=== PATIENT | female | born 1950 | race Caucasian/White ===

== ENCOUNTER 2016-12-10 10:17 | Emergency (ER) | payer OTHER, MEDICARE ==
--- NOTE | 2016-12-10 11:05 | ER Document Report ---
ED Neck/Back Problem - General Chief Complaint: Back Pain Stated Complaint: LOWER BACK PAIN Time Seen by Provider: 12/10/16 10:34 Mode of Arrival: Ambulatory Information source: Patient Notes: 6-year-old female presents to ED for complaint of lower back pain that comes around to the front at times for a week. She states that about 6 months ago she fell but she got up and moved and has not had any problems until a week ago. She states that at some time in the past she had pain in the left side of her back that came around to the front but this does not feel like her kidney stones. She states at that time she was also told she had kidney stones on the right. TRAVEL OUTSIDE OF THE [place] IN LAST 30 DAYS: No - HPI Patient complains to provider of: Pain, Lower back Onset: Last week Timing: Waxing and waning Severity: Moderate Pain Level: 3 Recent injury: No Associated symptoms: Lower back pain - sometimes goes around to fron Exacerbated by: Other - walking Relieved by: Other - sitting or lying Similar symptoms previously: No Recently seen / treated by doctor: No - Related Data Allergies/Adverse Reactions: ceftriaxone sodium [From Rocephin] Allergy (Verified 06/09/16 13:52) Past Medical History - General Information source: Patient - Social History Smoking Status: Never Smoker Cigarette use (# per day): No Chew tobacco use (# tins/day): No Smoking Education Provided: No Frequency of alcohol use: None Drug Abuse: None Family History: Arthritis, CVA, Hypertension, Malignancy Patient has suicidal ideation: No Patient has homicidal ideation: No - Past Medical History Cardiac Medical History: Reports: Hx Hypertension Pulmonary Medical History: Reports: Hx Bronchitis EENT Medical History: Reports: None Neurological Medical History: Reports: None Endocrine Medical History: Reports: Hx Diabetes Mellitus Type 2 Renal/ Medical History: Reports: Hx Kidney Stones Malignancy Medical History: Reports: None GI Medical History: Reports: None Musculoskeltal Medical History: Reports Hx Arthritis, Reports Hx Musculoskeletal Deformity, Reports Hx Musculoskeletal Trauma Skin Medical History: Reports None Psychiatric Medical History: Reports: Hx Anxiety Traumatic Medical History: Reports: Hx Fractures - crushed arm Infectious Medical History: Reports: None Past Surgical History: Reports: Hx Hysterectomy, Hx Orthopedic Surgery - replacement disc to neck and back, repair of crushed left arm, Other - ear surgery bilateral - Immunizations Immunizations up to date: No Hx Diphtheria, Pertussis, Tetanus Vaccination: No Review of Systems - Review of Systems Constitutional: No symptoms reported EENT: No symptoms reported Cardiovascular: No symptoms reported Respiratory: No symptoms reported Gastrointestinal: No symptoms reported Genitourinary: No symptoms reported Female Genitourinary: No symptoms reported Musculoskeletal: Back pain, Muscle pain Skin: No symptoms reported Hematologic/Lymphatic: No symptoms reported Neurological/Psychological: No symptoms reported -: Yes All other systems reviewed and negative Physical Exam - Vital signs Vitals: Temp Pulse Resp BP Pulse Ox 97.8 F 89 15 147/87 H 97 12/10/16 10:20 12/10/16 10:20 12/10/16 10:20 12/10/16 10:20 12/10/16 10:20 Interpretation: Normal - General General appearance: Appears well, Alert - HEENT Head: Normocephalic, Atraumatic Eyes: Normal Pupils: PERRL - Respiratory Respiratory status: No respiratory distress Chest status: Nontender Breath sounds: Normal Chest palpation: Normal - Cardiovascular Rhythm: Regular Heart sounds: Normal auscultation Murmur: No - Abdominal Inspection: Normal Distension: No distension Bowel sounds: Normal Tenderness: Nontender Organomegaly: No organomegaly - Back Back: Normal, Nontender, Other - No definite tender to palpation the patient states that the pain is more when she walks but that I am not palpating the area where the pain is as it is inside. - Extremities General upper extremity: Normal inspection, Nontender, Normal color, Normal ROM , Normal temperature General lower extremity: Normal inspection, Nontender, Normal color, Normal ROM , Normal temperature, Normal weight bearing. No: Clarissa's sign - Neurological Neuro grossly intact: Yes Cognition: Normal Orientation: AAOx4 Zeb Coma Scale Eye Opening: Spontaneous Zeb Coma Scale Verbal: Oriented [place] Coma Scale Motor: Obeys Commands Zeb Coma Scale Total: 15 Speech: Normal Motor strength normal: LUE, RUE, LLE, RLE Sensory: Normal - Psychological Associated symptoms: Normal affect, Normal mood - Skin Skin Temperature: Warm Skin Moisture: Dry Skin Color: Normal Course - Re-evaluation Re-evalutation: 12/10/16 12:[address] with patient and written report given the patient to follow-up with her primary doctor. Patient was treated with Toradol in the emergency room and instructed to follow-up with her primary doctor. - Vital Signs Vital signs: Temp Pulse Resp BP Pulse Ox 97.8 F 89 15 147/87 H 97 12/10/16 10:20 12/10/16 10:20 12/10/16 10:20 12/10/16 10:20 12/10/16 10:20 - Laboratory Laboratory results interpreted by me: 12/10/16 11:14 Urine Protein 100 H Urine Bilirubin SMALL H Urine Urobilinogen 2.0 H Ur Leukocyte Esterase TRACE H - Diagnostic Test Radiology reviewed: Image reviewed, Reports reviewed Discharge - Discharge Clinical Impression: Degenerative disc disease at L5-S1 level, non-obstructive kidney stone right Condition: Stable Disposition: HOME, SELF-CARE Additional Instructions: LOW BACK PAIN: Three out of every four people will have an episode of disabling back pain during their lifetime. Most commonly the pain is due to straining of the muscles and ligaments in the low back. Usual treatment includes: (1) Rest on a firm surface. Avoid lying on your stomach. (2) Ice pack the painful area. After a few days, gentle heat may be used intermittently to relax the area, or ice packs can be continued. (3) Medication may be needed -- muscle relaxers and antiinflammatory medicines are commonly used. (4) As the back improves, exercises are prescribed to strengthen the back and abdominal muscles. Your doctor will advise you on the proper care for your back at each stage in your recovery. You may be better in a few days -- or healing may take several weeks. If new symptoms of a "herniated disc" (radiation of pain, numbness, or tingling down the back of the leg or weakness in the leg) occur, you should be re-examined. Further testing may be necessary. Toradol Injection You have been given an injection of ketorolac tromethamine (Toradol). This is an excellent, safe drug for pain control. It also has potent antiinflammatory action. You should have significant pain relief within about one hour. Toradol is not addicting and is non-sedating. It does not interfere with driving or work. Call or return if you develop itching, hives, shortness of breath, or rash. Aspercreme meac-jpj-[id number] would also help your pain use as instructed on the tube.. You were given a copy of your CT please take this to your primary doctor to follow-up. ICE PACKS: Apply ice packs frequently against the painful area. Many different schedules are recommended, such as "20 minutes on, 20 minutes off" or "one hour ice, two hours rest." If you need to work, you may need to go longer between ice treatments. You should plan to have the area ice packed AT LEAST one fourth of the time. The ice should be applied over the wrap, tape, or splint, or over a layer of cloth -- not directly against the skin. Some ice bags have a built-in cloth and can be put directly on the skin. WARM PACKS: After approximately two days, apply gentle heat (such as a heating pad or hot water bottle) for about 20 to 30 minutes about every two hours -- at least four times daily. Warmth and elevation will help you make a more rapid recovery , and will ease the pain considerably. Do not use HOT heat, and never apply heat for longer than 30 minutes. The continuous heat can invisibly damage skin and muscles -- even when no burn is seen on the surface. Damaged muscles can make you MORE sore. FOLLOW-UP CARE: If you have been referred to a physician for follow-up care, call the physician s office for an appointment as you were instructed or within the next two days. If you experience worsening or a significant change in your symptoms, notify the physician immediately or return to the Emergency Department at any time for re-evaluation. Forms: Elevated Blood Pressure
--- NOTE | 2016-12-10 11:29 | RADIOLOGY REPORT (SQ) ---
EXAM DESCRIPTION: CT LTD RENAL STONE PROTOCOL ON COMPLETED DATE/TIME: 12/10/2016 11:04 am REASON FOR STUDY: lower back around to front pain COMPARISON: None. TECHNIQUE: CT scan of the abdomen and pelvis performed without intravenous or oral contrast. Images reviewed with lung, soft tissue, and bone windows. Reconstructed coronal and sagittal MPR images revi ewed. All images stored on PACS. All CT scanners at this facility use dose modulation, iterative reconstruction, and/or weight based d osing when appropriate to reduce radiation dose to as low as reasonably achievable (ALARA). [facility]: Dose Right [facility]: CareDose [facility]: Dose Right [facility]: Teradose 4D [facility]: [employer] RADIATION DOSE: Up-to-date CT equipment and radiation dose reduction techniques were employed. CTDIv ol: 17.5 mGy. DLP: 943 mGy-cm.mGy. LIMITATIONS: None. FINDINGS: LOWER CHEST: No significant findings. No nodules or infiltrates. NON-CONTRASTED LIVER, SPLEEN, ADRENALS: Evaluation limited by lack of IV contrast. No identified sign ificant masses. PANCREAS: No masses. No peripancreatic inflammatory changes. GALLBLADDER: No identified stones by CT criteria. No inflammatory changes to suggest cholecystitis. RIGHT KIDNEY AND URETER: No suspicious masses. Assessment limited by lack of IV contrast. There is a 10 mm upper calyceal calculus. No hydronephrosis or hydroureter. LEFT KIDNEY AND URETER: No suspicious masses. Assessment limited by lack of IV contrast. No signifi cant calcifications. No hydronephrosis or hydroureter. AORTA AND RETROPERITONEUM: No aneurysm. No retroperitoneal masses or adenopathy. BOWEL AND PERITONEAL CAVITY: Considerable stool is present. No acute abnormality is seen. There is no bowel mass. APPENDIX: Normal. PELVIS, BLADDER, AND ABDOMINAL WALL:The urinary bladder is incompletely filled and therefore not well evaluated. The uterus is normal. There is no adnexal mass or fluid collection. There is no free f luid. BONES: There is minimal levoscoliosis in the lumbar spine. Degenerative disc changes and mild spondy losis are present at L3-4. OTHER: No other significant finding. IMPRESSION: 1. There is a 10 mm upper calyceal calculus right kidney. There is no ureteral stone o r obstruction on either side. 2. There are lumbar degenerative disc changes and there is mild lumbar spondylosis and mild scoliosi s. TECHNICAL DOCUMENTATION: JOB ID: [id number] Quality ID # [id number]: Final reports with documentation of one or more dose reduction techniques (e.g., Au tomated exposure control, adjustment of the mA and/or kV according to patient size, use of iterative reconstruction technique) 2010 [employer]- All Rights Reserved
[2016-12-10 11:41] LABS: APPEARANCE,URINE CLOUDY; BILIRUBIN,URINE SMALL (NEGATIVE); GLUCOSE, URINE NEGATIVE (NEGATIVE); KETONES,URINE NEGATIVE (NEGATIVE); LEUKOCYTE ESTERASE,URINE TRACE (NEGATIVE); NITRITE,URINE NEGATIVE (NEGATIVE); PROTEIN,URINE 100 mg/dL (NEGATIVE); URINE SPECIFIC GRAVITY 1.029
[2016-12-10] MEDS ORDERED: KETOROLAC TROMETHAMINE 60 MG/2 ML SDV IM ONE (12:03)
[2016-12-10 12:22] VITALS: BP 149/77
== END 2016-12-10 12:24 | disposition home or self-care (01) ==
LOC: ER 10:17
DX: M51.37 Other intervertebral disc degeneration, lumbosacral region (principal); N20.0 Calculus of kidney; I10 Essential (primary) hypertension; E11.9 Type 2 diabetes mellitus without complications; Z91.81 History of falling; Z88.1 Allergy status to other antibiotic agents; Z98.890 Other specified postprocedural states
CPT/HCPCS: 99284; 96372; 81001; 76380; J1885

== ENCOUNTER → 2017-01-11 | Outpatient (CLI) | payer OTHER, MEDICARE ==
--- NOTE | 2017-01-11 10:55 | RADIOLOGY REPORT (SQ) ---
EXAM DESCRIPTION: MRI CERVICAL SPINE COMBO COMPLETED DATE/TIME: 01/11/2017 9:16 am REASON FOR STUDY: CERVICAL RADICULOPATHY (M54.12) M54.12 RADICULOPATHY, CERVICAL REGION COMPARISON: None. TECHNIQUE: Sagittal and Axial imaging includes T1, T2, STIR and gradient echo sequences. T1 post leodan olinium sequences. CONTRAST TYPE AND DOSE: 20 mL Multihance. RENAL FUNCTION: GFR > 60. LIMITATIONS: None. FINDINGS: ALIGNMENT: Normal. VERTEBRAE: Intact. Anterior fusion of the C5, C 6, and C7 vertebrae. BONE MARROW: Normal. No marrow replacement or reactive changes. DISCS: Normal. No significant abnormal signal or loss of height. HARDWARE: None in the spine. CORD AND BASE OF BRAIN: Normal in size and signal intensity. SOFT TISSUES: No soft tissue masses. C1-C2: No significant spinal stenosis. C2-C3: No significant spinal stenosis or exit foraminal stenosis. C3-C4: Mild posterior disc and osteophyte and right uncovertebral spurring. Borderline mild spinal s tenosis. Moderate to severe right exit foraminal stenosis. C4-C5: Small central disc protrusion with borderline impingement of the cord. No significant spinal stenosis or exit foraminal stenosis. C5-C6: No significant spinal stenosis or exit foraminal stenosis. C6-C7: No significant spinal stenosis or exit foraminal stenosis. C7-T1: No significant spinal stenosis or exit foraminal stenosis. UPPER THORACIC: Incompletely imaged. No significant spinal stenosis or exit foraminal stenosis. ENHANCEMENT: No abnormal enhancement. OTHER: No other significant finding. IMPRESSION: PREVIOUS ANTERIOR FUSION AT C5, C 6, AND C7. DEGENERATIVE DISC DISEASE AT C3-C4 AND C4- C5 DESCRIBED ABOVE. COMMENT: None. TECHNICAL DOCUMENTATION: JOB ID: [id number]- All Rights Reserved
== END ==
LOC: RAD 07:43
PROVIDERS: ATTEND Internal Medicine
DX: M50.123 Cervical disc disorder at C6-C7 level with radiculopathy (principal)
CPT/HCPCS: 82565; 72156; A9577

== ENCOUNTER 2017-11-16 08:31 | Day surgery (SDC) | payer BC, MEDICARE ==
[2017-11-16] MEDS ORDERED: ASPIRIN 325 MG TABLET PO ONE (09:07)
[2017-11-16] MEDS ORDERED: METOCLOPRAMIDE HCL ORAL SOLN 10 MG/10 ML UDCUP PO ONE (09:14)
[2017-11-16] MEDS ORDERED: LIDOCAINE 2% VISCOUS SOLN 20 ML UDCUP PO ONE (09:14)
[2017-11-16] MEDS ORDERED: MAG HYDROX/AL HYDROX/SIMETH SUSP 30 ML UDCUP PO ONE (09:14)
--- NOTE | 2017-11-16 09:16 | ER Document Report ---
ED General - General Chief Complaint: Abdominal Pain Stated Complaint: STOMACH PAIN Time Seen by Provider: 11/16/17 09:05 Mode of Arrival: Ambulatory Information source: Patient Notes: 67 yr old female presents with complaints of epigastric pain radiating to the back and arounds the sides. pt denies any ismilar complaints, denies any fevers or chills, admits to nausea and vomiting . TRAVEL OUTSIDE OF THE [place] IN LAST 30 DAYS: No - HPI Onset: Yesterday Onset/Duration: Persistent Quality of pain: Sharp Severity: Moderate Pain Level: 3 Associated symptoms: Nausea, Vomiting Exacerbated by: Denies Relieved by: Denies Similar symptoms previously: No Recently seen / treated by doctor: No - Related Data Allergies/Adverse Reactions: ceftriaxone sodium [From Rocephin] Allergy (Verified 11/16/17 08:46) Past Medical History - Social History Smoking Status: Never Smoker Cigarette use (# per day): No Chew tobacco use (# tins/day): No Smoking Education Provided: No Family History: Arthritis, CVA, Hypertension, Malignancy - Past Medical History Cardiac Medical History: Reports: Hx Hypertension Pulmonary Medical History: Reports: Hx Bronchitis Endocrine Medical History: Reports: Hx Diabetes Mellitus Type 2 Renal/ Medical History: Reports: Hx Kidney Stones. Denies: Hx Peritoneal Dialysis Musculoskeltal Medical History: Reports Hx Arthritis, Reports Hx Musculoskeletal Deformity, Reports Hx Musculoskeletal Trauma Psychiatric Medical History: Reports: Hx Anxiety Traumatic Medical History: Reports: Hx Fractures - crushed arm Past Surgical History: Reports: Hx Hysterectomy, Hx Orthopedic Surgery - replacement disc to neck and back, repair of crushed left arm, Other - ear surgery bilateral - Immunizations Immunizations up to date: No Hx Diphtheria, Pertussis, Tetanus Vaccination: No Review of Systems - Review of Systems Notes: REVIEW OF SYSTEMS: CONSTITUTIONAL : Denies fever, chills, or sweats. Denies recent illness. EENT: Denies eye, ear, throat, or mouth pain or symptoms. Denies nasal or sinus congestion or discharge. Denies throat, tongue, or mouth swelling or difficulty swallowing. CARDIOVASCULAR: Denies chest pain. Denies palpitations or racing or irregular heart beat. Denies ankle edema. RESPIRATORY: Denies cough, cold, or chest congestion. Denies shortness of breath, difficulty breathing, or wheezing. GASTROINTESTINAL: admits to abd pain, epigastric radiating ot her back GENITOURINARY: Denies difficulty urinating, painful urination, burning, frequency, blood in urine, or discharge. FEMALE GENITOURINARY: Denies vaginal bleeding, heavy or abnormal periods, irregular periods. Denies vaginal discharge or odor. MUSCULOSKELETAL: Denies back or neck pain or stiffness. Denies joint pain or swelling. SKIN: Denies rash, lesions or sores. HEMATOLOGIC : Denies easy bruising or bleeding. LYMPHATIC: Denies swollen, enlarged glands. NEUROLOGICAL: Denies confusion or altered mental status. Denies passing out or loss of consciousness. Denies dizziness or lightheadedness. Denies headache. Denies weakness or paralysis or loss of use of either side. Denies problems with gait or speech. Denies sensory loss, numbness, or tingling. Denies seizures. PSYCHIATRIC: Denies anxiety or stress. Denies depression, suicidal ideation, or homicidal ideation. ALL OTHER SYSTEMS REVIEWED AND NEGATIVE. PHYSICAL EXAMINATION: GENERAL: Well-appearing, well-nourished and in moderate distress. HEAD: Atraumatic, normocephalic. EYES: Pupils equal round and reactive to light, extraocular movements intact, conjunctiva are normal. ENT: Nares patent, oropharynx clear without exudates. Moist mucous membranes. NECK: Normal range of motion, supple without lymphadenopathy LUNGS: Breath sounds clear to auscultation bilaterally and equal. No wheezes rales or rhonchi. HEART: Regular rate and rhythm without murmurs ABDOMEN: Soft, tender i nthe RUQ, epigastric and LUQ regions. Female : deferred Musculoskeletal: Normal range of motion, no pitting or edema. No cyanosis. NEUROLOGICAL: Cranial nerves grossly intact. Normal speech, normal gait. Normal sensory, motor exams PSYCH: Normal mood, normal affect. SKIN: Warm, Dry, normal turgor, no rashes or lesions noted. Dictation was performed using [employer] voice recognition software Physical Exam - Vital signs Vitals: Temp Pulse Resp BP Pulse Ox 97.6 F 86 20 137/72 H 98 11/16/17 08:51 11/16/17 08:51 11/16/17 08:51 11/16/17 08:51 11/16/17 08:51 Course - Re-evaluation Re-evalutation: 11/16/17 12:50 Patient was given a GI cocktail noted no improvement of her symptoms, patient was then given fentanyl which improved her pain for short while patient was then given Dilaudid which has helped her pain. She was ordered a CT with oral and IV contrast vomited the contrast back I do not have a specific cause of the patient's pain I did consult Dr. Delgado to evaluate the patient 11/16/17 15:34 Patient will be admitted for cholecystitis - Vital Signs Vital signs: Temp Pulse Resp BP Pulse Ox 97.6 F 86 20 137/72 H 98 11/16/17 08:51 11/16/17 08:51 11/16/17 08:51 11/16/17 08:51 11/16/17 08:51 - Laboratory Result Diagrams: 11/16/17 10:01 11/16/17 10:01 Laboratory results interpreted by me: 11/16/17 11/16/17 10:01 10:01 WBC 11.6 H RDW 15.4 H Absolute Neutrophils 9.0 H BUN 21 H Glucose 246 H Calcium 11.1 H AST 92 H ALT 66 H Discharge - Discharge Clinical Impression: Cholecystitis Condition: Stable Disposition: ADMITTED INPATIENT Admitting Provider: Surgicalist Unit Admitted: Surgical Floor Referrals: ZORAN JAMES MD [Primary Care Provider] - Follow up as needed
[2017-11-16] MEDS ORDERED: FENTANYL CITRATE INJ/PF 100 MCG/2 ML AMPUL IV ONE (10:04)
--- NOTE | 2017-11-16 10:09 | RADIOLOGY REPORT (SQ) ---
EXAM DESCRIPTION: CHEST 2 VIEWS COMPLETED DATE/TIME: 11/16/2017 10:00 am REASON FOR STUDY: chest pain COMPARISON: 11/19/2015 EXAM PARAMETERS: NUMBER OF VIEWS: two views TECHNIQUE: Digital Frontal and Lateral radiographic views of the chest acquired. RADIATION DOSE: NA LIMITATIONS: none FINDINGS: LUNGS AND PLEURA: No opacities, masses or pneumothorax. No pleural effusion. MEDIASTINUM AND HILAR STRUCTURES: No masses or contour abnormalities. HEART AND VASCULAR STRUCTURES: Heart normal size. No evidence for failure. BONES: No acute findings. HARDWARE: None in the chest. OTHER: No other significant finding. IMPRESSION: NO ACUTE RADIOGRAPHIC FINDING IN THE CHEST. TECHNICAL DOCUMENTATION: JOB ID: [id number] [employer]- All Rights Reserved Reading location - IP/workstation name: [email or web address]
--- NOTE | 2017-11-16 10:11 | RADIOLOGY REPORT (SQ) ---
EXAM DESCRIPTION: KUB/ABDOMEN (SINGLE VIEW) COMPLETED DATE/TIME: 11/16/2017 10:00 am REASON FOR STUDY: epigastric pain, hx GERD COMPARISON: None. NUMBER OF VIEWS: One view. TECHNIQUE: Supine radiographic image of the abdomen acquired. LIMITATIONS: None. FINDINGS: BOWEL GAS PATTERN: Normal bowel gas pattern. No dilated loops. CALCIFICATIONS: A calcification overlies the left kidney appear SOFT TISSUES: No gross mass or suggestion of organomegaly. HARDWARE: None in the abdomen. BONES: No acute fracture. No worrisome bone lesions. OTHER: No other significant finding. IMPRESSION: Possible left renal calculus. Nonspecific abdomen. TECHNICAL DOCUMENTATION: JOB ID: [id number] [employer]- All Rights Reserved Reading location - IP/workstation name: [email or web address]
[2017-11-16 10:25] LABS: ABSOLUTE BASOPHILS # (AUTO) 0.1 10^3/uL (0.0-0.2); ABSOLUTE EOSINOPHILS # (AUTO) 0.1 10^3/uL (0.0-0.6); ABSOLUTE LYMPHOCYTES (AUTO) 1.8 10^3/uL (0.5-4.7); ABSOLUTE MONOCYTES (AUTO) 0.6 10^3/uL (0.1-1.4); BASOPHILS % (AUTO) 0.8 % (0-2); EOSINOPHILS % (AUTO) 0.7 % (0-6); HEMATOCRIT 41.8 % (36.0-47.0); HEMOGLOBIN 14.5 g/dL (12.0-15.5); LYMPHOCYTES % (AUTO) 15.4 % (13-45); MEAN CORPUSCULAR HEMOGLOBIN 28.6 pg (27.0-33.4); MEAN CORPUSCULAR HGB CONC 34.6 g/dL (32.0-36.0); MEAN CORPUSCULAR VOLUME 83 fl (80-97); MONOCYTES % (AUTO) 5.2 % (3-13); PLATELET COUNT 332 10^3/uL (150-450); RED BLOOD COUNT 5.05 10^6/uL (3.72-5.28); RED CELL DISTRIBUTION WIDTH 15.4 % (11.5-14.0); SEGMENTED NEUTROPHILS % (AUTO) 77.9 % (42-78); TOTAL CELLS COUNTED % (AUTO) 100 %; WHITE BLOOD COUNT 11.6 10^3/uL (4.0-10.5)
[2017-11-16 10:51] LABS: ALANINE AMINOTRANSFERASE 66 U/L (9-52); ALBUMIN 4.6 g/dL (3.5-5.0); ALKALINE PHOSPHATASE 99 U/L (38-126); ANION GAP 16 (5-19); ASPARTATE AMINO TRANSFERASE 92 U/L (14-36); BILIRUBIN,DIRECT 0.4 mg/dL (0.0-0.4); BILIRUBIN,TOTAL 0.6 mg/dL (0.2-1.3); BLOOD UREA NITROGEN 21 mg/dL (7-20); CALCIUM 11.1 mg/dL (8.4-10.2); CARBON DIOXIDE 22 mmol/L (22-30); CHLORIDE 104 mmol/L (98-107); CREATINE KINASE 36 U/L (30-135); GLUCOSE 246 mg/dL (75-110); POTASSIUM 3.7 mmol/L (3.6-5.0); SODIUM 141.9 mmol/L (137-145); TOTAL PROTEIN 7.8 g/dL (6.3-8.2)
[2017-11-16 11:03] LABS: CREATINE KINASE MB 0.79 ng/mL (<4.55)
[2017-11-16 11:08] LABS: TROPONIN I < 0.012 ng/mL
--- NOTE | 2017-11-16 12:42 | RADIOLOGY REPORT (SQ) ---
EXAM DESCRIPTION: CT ABD/PELVIS WITH IV ORAL COMPLETED DATE/TIME: 11/16/2017 12:27 pm REASON FOR STUDY: epigastric pain COMPARISON: 11/19/2015 and 12/26/2010. TECHNIQUE: CT scan of the abdomen and pelvis performed using helical scanning technique with dynamic intravenous contrast injection. No oral contrast. Images reviewed with lung, soft tissue, and bone windows. Reconstructed coronal and sagittal MPR images reviewed. Delayed images for evaluation of the urinary system also acquired. All images stored on PACS. All CT scanners at this facility use dose modulation, iterative reconstruction, and/or weight based d osing when appropriate to reduce radiation dose to as low as reasonably achievable (ALARA). [facility]: Dose Right [facility]: CareDose [facility]: Dose Right [facility]: Teradose 4D [facility]: [employer] CONTRAST TYPE AND DOSE: contrast/concentration: Isovue 370.00 mg/ml; Total Contrast Delivered: 100.0 ml; Total Saline Delivered: 68.7 ml RENAL FUNCTION: BUN 21 creatinine 0.65. RADIATION DOSE: CT Rad equipment meets quality standard of care and radiation dose reduction techniq ues were employed. CTDIvol: 15.3 - 18.6 mGy. DLP: 1860 mGy-cm.. LIMITATIONS: None. FINDINGS: LOWER CHEST: No significant findings. No nodules or infiltrates. LIVER: Normal size. Mild fatty infiltration. No masses. No dilated ducts. SPLEEN: Normal size. No focal lesions. PANCREAS: No masses. No significant calcifications. No adjacent inflammation or peripancreatic fluid collections. Pancreatic duct not dilated. GALLBLADDER: No identified stones by CT criteria. No inflammatory changes to suggest cholecystitis. ADRENAL GLANDS: No significant masses or asymmetry. RIGHT KIDNEY AND URETER: No solid masses. Stable nonobstructing calyceal calculus. No hydronephro sis or hydroureter. LEFT KIDNEY AND URETER: No solid masses. No significant calcifications. No hydronephrosis or hydr oureter. AORTA AND VESSELS: No aneurysm. No dissection. Renal arteries, SMA, celiac without stenosis. RETROPERITONEUM: No retroperitoneal adenopathy, hemorrhage or masses. BOWEL AND PERITONEAL CAVITY: No masses or inflammatory changes. No free fluid or peritoneal masses. APPENDIX: Normal. PELVIS: No mass. Again seen is a small amount of fluid in the endometrial cavity, unchanged from yoan or studies. No free fluid. Normal bladder. ABDOMINAL WALL: No masses. Small umbilical hernia containing fat. No involvement of bowel. BONES: No significant or acute findings. OTHER: No other significant finding. IMPRESSION: STABLE NONOBSTRUCTING CALYCEAL CALCULUS IN THE RIGHT KIDNEY. SMALL UMBILICAL HERNIA CON TAINING FAT WITH NO INVOLVEMENT OF BOWEL. NO OTHER SIGNIFICANT OR ACUTE FINDING IN THE ABDOMEN OR PE LVIS ON CT SCAN WITH IV CONTRAST. TECHNICAL DOCUMENTATION: JOB ID: [id number] Quality ID # [id number]: Final reports with documentation of one or more dose reduction techniques (e.g., Au tomated exposure control, adjustment of the mA and/or kV according to patient size, use of iterative reconstruction technique) 2010 [employer]- All Rights Reserved Reading location - IP/workstation name: [email or web address]
[2017-11-16] MEDS ORDERED: ROCURONIUM BROMIDE INJ 50 MG/5 ML VIAL IV ONE (15:24)
[2017-11-16] MEDS ORDERED: DEXAMETHASONE SOD PHOSPHATE INJ 4 MG/1 ML VIAL ONE (15:24)
[2017-11-16] MEDS ORDERED: ONDANSETRON HCL INJ/PF 4 MG/2 ML SDV ONE (15:24)
[2017-11-16] MEDS ORDERED: METOCLOPRAMIDE HCL INJ/PF 10 MG/2 ML SDV ONE (15:24)
[2017-11-16] MEDS ORDERED: SUCCINYLCHOLINE CHLORIDE INJ 200 MG/10 ML VIAL ONE (15:24)
[2017-11-16] MEDS ORDERED: KETOROLAC TROMETHAMINE 60 MG/2 ML SDV ONE (15:24)
[2017-11-16] MEDS ORDERED: GLYCOPYRROLATE 1 MG/5 ML SYRINGE ONE (15:24)
--- NOTE | 2017-11-16 15:27 | RADIOLOGY REPORT (SQ) ---
EXAM DESCRIPTION: U/S ABDOMEN LIMITED W/O DOP COMPLETED DATE/TIME: 11/16/2017 3:15 pm REASON FOR STUDY: RUQ pain COMPARISON: CT dated 11/16/2017. Ultrasound dated 12/11/2010. TECHNIQUE: Dynamic and static grayscale images acquired of the abdomen and recorded on PACS. Urio jerel selected color Doppler and spectral images recorded. LIMITATIONS: None. FINDINGS: PANCREAS: No masses. No peripancreatic edema or fluid collections. LIVER: Echotexture is coarse with increased echogenicity consistent with fatty infiltration. LIVER VASCULATURE: Normal directional flow of the main portal vein and hepatic veins. GALLBLADDER: Gallstone(s). No pericholecystic fluid. No wall thickening. ULTRASOUND-DETECTED STANFORD'S SIGN: Negative. INTRAHEPATIC DUCTS AND COMMON DUCT: CBD and intrahepatic ducts normal caliber. No filling defects. INFERIOR VENA CAVA: Normal flow. AORTA: No aneurysm. RIGHT KIDNEY: Normal size. Normal echogenicity. No solid or suspicious masses. No hydronephrosis. S hadowing calculus in the upper pole. PERITONEAL AND RIGHT PLEURAL SPACE: No ascites or effusions. OTHER: No other significant finding. IMPRESSION: 1. GALLSTONES. 2. NONOBSTRUCTING CALCULUS IN THE RIGHT KIDNEY. 3. FATTY INFILTRATION OF THE LIVER. NO OTHER SIGNIFICANT FINDINGS. TECHNICAL DOCUMENTATION: JOB ID: [id number]- All Rights Reserved Reading location - IP/workstation name: [email or web address]
[2017-11-16] MEDS ORDERED: NORMAL SALINE 1000 ML 1,000 ML IV ONE (15:39)
--- NOTE | 2017-11-16 16:34 | PDOC H&P ---
History of Present Illness Admission Date/PCP: 11/16/17 15:49 ZORAN JAMES MD Patient complains of: Abdominal pain History of Present Illness: ROCIO LANGLEY is a 67 year old female presents with acute onset of right upper quadrant abdominal pain radiating to her back that began last night. It has subsided somewhat but it is still persistent. She has had associated nausea. No fevers or chills no jaundice. She has had prior episodes of this sort of pain before. She is unsure whether it is related with diet. She has had no prior abdominal surgeries. She denies any shortness of breath no chest pain. Past Medical History Cardiac Medical History: Reports: Hypertension Pulmonary Medical History: Reports: Bronchitis Endocrine Medical History: Reports: Diabetes Mellitus Type 2 Musculoskeltal Medical History: Reports: Arthritis Hematology: Denies: Anemia Past Surgical History Past Surgical History: Reports: Hysterectomy, Orthopedic Surgery - replacement disc to neck and back, repair of crushed left arm, Other - ear surgery bilateral Social History Smoking Status: Never Smoker Frequency of Alcohol Use: None Hx Recreational Drug Use: No Family History Family History: Arthritis, CVA, Hypertension, Malignancy Parental Family History Reviewed: No Children Family History Reviewed: No Sibling(s) Family History Reviewed.: No Medication/Allergy Allergies/Adverse Reactions: ceftriaxone sodium [From Rocephin] Allergy (Verified 11/16/17 08:46) Physical Exam Vital Signs: Temp Pulse Resp BP Pulse Ox 97.6 F 86 20 137/72 H 98 11/16/17 08:51 11/16/17 08:51 11/16/17 08:51 11/16/17 08:51 11/16/17 08:51 General appearance: PRESENT: no acute distress, cooperative Eye exam: PRESENT: conjunctiva pink Respiratory exam: PRESENT: clear to auscultation shadi Cardiovascular exam: PRESENT: RRR GI/Abdominal exam: PRESENT: other - Soft, nondistended, obese, focal right upper quadrant abdominal tenderness without peritoneal signs. Extremities exam: PRESENT: other - Bilateral lower extremity diffuse edema. Chronic as per the patient. Recently started on a diuretic by her primary care physician. Neurological exam: PRESENT: alert, awake Psychiatric exam: PRESENT: appropriate affect Skin exam: PRESENT: warm Results Impressions: Abdomen/Pelvis CT 11/16/17 00:00 IMPRESSION: STABLE NONOBSTRUCTING CALYCEAL CALCULUS IN THE RIGHT KIDNEY. SMALL UMBILICAL HERNIA CONTAINING FAT WITH NO INVOLVEMENT OF BOWEL. NO OTHER SIGNIFICANT OR ACUTE FINDING IN THE ABDOMEN OR PELVIS ON CT SCAN WITH IV CONTRAST. Chest X-Ray 11/16/17 09:07 IMPRESSION: NO ACUTE RADIOGRAPHIC FINDING IN THE CHEST. KUB X-Ray 11/16/17 09:15 IMPRESSION: Possible left renal calculus. Nonspecific abdomen. Abdomen Ultrasound 11/16/17 13:03 IMPRESSION: 1. GALLSTONES. 2. NONOBSTRUCTING CALCULUS IN THE RIGHT KIDNEY. 3. FATTY INFILTRATION OF THE LIVER. NO OTHER SIGNIFICANT FINDINGS. Assessment & Plan - Diagnosis (1) Cholelithiasis Qualifiers: Cholecystitis presence: with cholecystitis Is this a current diagnosis for this admission?: Yes Plan: Symptomatic cholelithiasis possible cholecystitis based upon the persistence of her pain and tenderness. Will plan to take the patient to the operating room for laparoscopic cholecystectomy possible open cholecystectomy. I have had a long discussion with the patient concerning the risk and benefits of the surgery including risk of infection, bleeding, bile duct and intestinal injury, postcholecystectomy diarrhea, and cardiopulmonary risks. Patient understands and agrees to proceed.
[2017-11-16] MEDS ORDERED: BUPIVACAINE HCL 0.25 % INJ/PF (2.5 MG/1 ML) 30 ML VIAL ONE (16:41)
[2017-11-16] MEDS ORDERED: HYDROMORPHONE HCL INJ/PF 2 MG/ML AMPULE ONE (17:24)
[2017-11-16] MEDS ORDERED: MIDAZOLAM 2 MG/2 ML INJ ONE (17:24)
[2017-11-16] MEDS ORDERED: ACETAMINOPHEN 1,000 MG/100 ML RTUPB IV ONE (17:24)
[2017-11-16] MEDS ORDERED: PROPOFOL INJ 200 MG/20 ML VIAL IV ONE (17:24)
[2017-11-16] MEDS ORDERED: LEVOFLOXACIN 750 MG/D5W RTU 750 MG/150 ML RTUPB IV ONE (17:40)
[2017-11-16] MEDS ORDERED: FENTANYL CITRATE INJ/PF 100 MCG/2 ML AMPUL ONE (18:34)
[2017-11-16] MEDS ORDERED: OXYCODONE-ACETAMINOPHEN 5-325 MG TABLET PO PRN (18:43)
[2017-11-16] MEDS ORDERED: FENTANYL CITRATE INJ/PF 100 MCG/2 ML AMPUL IV PRN ×3 (18:43)
[2017-11-16] MEDS ORDERED: PROMETHAZINE HCL INJ 25 MG/1 ML VIAL IV PRN ×2 (18:43)
[2017-11-16] MEDS ORDERED: DIPHENHYDRAMINE HCL 50 MG/ML VIAL IV PRN (18:43)
[2017-11-16] MEDS ORDERED: MEPERIDINE HCL/PF INJ 25 MG/1 ML DISP.SYRIN IV PRN (18:43)
[2017-11-16] MEDS ORDERED: ONDANSETRON HCL INJ/PF 4 MG/2 ML SDV IV PRN ×2 (18:43→19:09)
[2017-11-16] MEDS ORDERED: DEXTROSE 40% GEL 15 GM TUBE PO PRN ×4 (19:09→19:15)
[2017-11-16] MEDS ORDERED: DEXTROSE 50%-WATER 25 GM/50 ML DISP.SYRIN IV PRN ×4 (19:09→19:15)
[2017-11-16] MEDS ORDERED: GLUCAGON,HUMAN RECOMB 1 MG INJ SUBCUT PRN (19:09)
[2017-11-16] MEDS ORDERED: MORPHINE SULFATE 10 MG/ML INJ IV PRN (19:09)
--- NOTE | 2017-11-16 19:09 | Operative Report ---
Operative Report DATE OF SURGERY: 11/16/17 PREOPERATIVE DIAGNOSIS: Cholelithiasis, cholecystitis POSTOPERATIVE DIAGNOSIS: Acute gangrenous cholecystitis, cholelithiasis, umbilical hernia. OPERATION: Laparoscopic cholecystectomy, umbilical hernia repair SURGEON: GRISELDA MCDONALD ANESTHESIA: GA TISSUE REMOVED OR ALTERED: gallbladder COMPLICATIONS: None ESTIMATED BLOOD LOSS: Minimal INTRAOPERATIVE FINDINGS: 1 cm fascial defect at the umbilicus, gangrenous gallbladder with multiple gallstones PROCEDURE: Informed consent was obtained. Patient was brought to the operating room placed operating table in supine position. After satisfactory induction of general anesthesia, patient's abdomen was prepped and draped in usual sterile fashion. Patient had a palpable umbilical hernia fascial defect. A semicircular periumbilical infraumbilical incision was made and dissection was carried down and the umbilical hernia fascial defect was defined. There was herniated preperitoneal fat that was dissected free and dropped back into the preperitoneal space. The peritoneal cavity was entered without difficulty. Troncoso trocar was inserted. Pneumoperitoneum produced good patient toleration. 5 mm trocar was placed in the subxiphoid location.Two 5 mm trochars were placed in the right subcostal location. The gallbladder was markedly distended and its wall appeared gangrenous. The gallbladder was decompressed with a decompression needle. The gallbladder was grasped and retracted cephalad over the dome of the liver. The infundibulum of the gallbladder was grasped retracted laterally and inferiorly thus exposing calot's triangle. The cystic duct gallbladder junction was clearly identified and the cystic duct was clipped and divided. Cystic artery was likewise taken. The gallbladder was taken off the gallbladder bed using the hook electrocautery technique. The gallbladder was removed with an Endobag through the Troncoso trocar site fascial defect. Hemostasis appeared excellent. All trochars were removed under the direct vision a laparoscope to ensure hemostasis. Of note there was omentum adhered to the preperitoneal fat of the umbilical hernia that had been dissected. This omental adhesion was taken down. The umbilical hernia was repaired with interrupted Ethibond sutures. The repair was performed in a transverse direction. All skin incisions were closed with subcuticular interrupted Monocryl sutures. Marcaine was injected at the port sites. Patient tolerated procedure well no apparent complications and was taken to the recovery area in stable condition.
[2017-11-16] MEDS ORDERED: INSULIN REG, HUMAN 100 UNIT/ML 3 ML VIAL (PYX) SUBCUT PRN (19:15)
[2017-11-16] MEDS ORDERED: GLUCAGON,HUMAN RECOMB 1 MG INJ IM PRN (19:15)
[2017-11-16] MEDS ORDERED: METOPROLOL TARTRATE 25 MG TABLET PO SCH (22:00)
[2017-11-16] MEDS ORDERED: (PENDING PHARMACY ID) (Buspirone Hcl [Buspar 15 Mg Tablet] 7.5 MG) PO SCH (22:00)
--- NOTE | 2017-11-16 22:36 | EKG REPORT ---
SEVERITY:- ABNORMAL ECG - SINUS RHYTHM LEFT ANTERIOR FASCICULAR BLOCK : Confirmed by: Juana Thompson MD 16-Nov-2017 22:35:42
[2017-11-16] MEDS: NORMAL SALINE 1000 ML 1,000 ML IV PRN (23:04)
[2017-11-17] MEDS: MELOXICAM 7.5 MG TABLET PO SCH ×2 (03:18→09:43)
[2017-11-17] MEDS: BUSPIRONE HCL 10 MG TABLET PO SCH ×2 (03:18→05:14)
[2017-11-17 07:02] LABS: ALANINE AMINOTRANSFERASE 50 U/L (9-52); ALBUMIN 3.6 g/dL (3.5-5.0); ALKALINE PHOSPHATASE 67 U/L (38-126); ANION GAP 12 (5-19); ASPARTATE AMINO TRANSFERASE 30 U/L (14-36); BILIRUBIN,DIRECT 0.3 mg/dL (0.0-0.4); BILIRUBIN,TOTAL 0.5 mg/dL (0.2-1.3); BLOOD UREA NITROGEN 14 mg/dL (7-20); CALCIUM 9.2 mg/dL (8.4-10.2); CARBON DIOXIDE 23 mmol/L (22-30); CHLORIDE 108 mmol/L (98-107); GLUCOSE 140 mg/dL (75-110); POTASSIUM 3.9 mmol/L (3.6-5.0); SODIUM 142.7 mmol/L (137-145); TOTAL PROTEIN 6.2 g/dL (6.3-8.2)
[2017-11-17] MEDS ORDERED: METOPROLOL TARTRATE 25 MG TABLET PO SCH (08:00)
[2017-11-17] MEDS: NORMAL SALINE 1000 ML 1,000 ML IV PRN (09:23)
[2017-11-17] MEDS ORDERED: NIFEDIPINE 30 MG TAB.ER.24 PO SCH (10:00)
[2017-11-17] MEDS ORDERED: (PENDING PHARMACY ID) (Nifedipine [Nifedipine Er] 60 MG) PO SCH (10:00)
[2017-11-17] MEDS ORDERED: HYDROCHLOROTHIAZIDE 25 MG TABLET PO SCH (10:00)
--- NOTE | 2017-11-17 11:42 | PDOC PROGRESS REPORT ---
Subjective Progress Note for:: 11/17/17 Subjective:: Feels much better. Preoperative pain has resolved. Reason For Visit: CHOLECYSTITIS,UMBILICAL HERNIA Physical Exam Vital Signs: Temp Pulse Resp BP Pulse Ox 98.1 F 94 20 151/88 H 97 11/17/17 08:28 11/17/17 08:28 11/17/17 03:45 11/17/17 08:28 11/17/17 08:28 Intake & Output 11/16/17 11/17/17 11/18/17 06:59 06:59 06:59 Intake Total 3250 Output Total 710 Balance 2540 General appearance: PRESENT: no acute distress, cooperative Respiratory exam: PRESENT: clear to auscultation shadi Cardiovascular exam: PRESENT: RRR GI/Abdominal exam: PRESENT: other - Soft, nondistended, minimal abdominal tenderness. Extremities exam: PRESENT: other - No swelling and no tenderness Results Laboratory Results: 11/17/17 06:32 11/17/17 06:32 Sodium 142.7 Potassium 3.9 Chloride 108 H Carbon Dioxide 23 Anion Gap 12 BUN 14 Creatinine 0.59 Est GFR ( Amer) > 60 Est GFR (Non-Af Amer) > 60 Glucose 140 H Calcium 9.2 Total Bilirubin 0.5 AST 30 ALT 50 Alkaline Phosphatase 67 Total Protein 6.2 L Albumin 3.6 Impressions: Abdomen/Pelvis CT 11/16/17 00:00 IMPRESSION: STABLE NONOBSTRUCTING CALYCEAL CALCULUS IN THE RIGHT KIDNEY. SMALL UMBILICAL HERNIA CONTAINING FAT WITH NO INVOLVEMENT OF BOWEL. NO OTHER SIGNIFICANT OR ACUTE FINDING IN THE ABDOMEN OR PELVIS ON CT SCAN WITH IV CONTRAST. Chest X-Ray 11/16/17 09:07 IMPRESSION: NO ACUTE RADIOGRAPHIC FINDING IN THE CHEST. KUB X-Ray 11/16/17 09:15 IMPRESSION: Possible left renal calculus. Nonspecific abdomen. Abdomen Ultrasound 11/16/17 13:03 IMPRESSION: 1. GALLSTONES. 2. NONOBSTRUCTING CALCULUS IN THE RIGHT KIDNEY. 3. FATTY INFILTRATION OF THE LIVER. NO OTHER SIGNIFICANT FINDINGS. Assessment & Plan - Diagnosis (1) Cholelithiasis Qualifiers: Cholecystitis presence: with cholecystitis Is this a current diagnosis for this admission?: Yes Plan: Status post laparoscopic cholecystectomy and umbilical hernia repair. Patient looks very good. Will try a diet. If tolerated will discharge patient home today.
--- NOTE | 2017-11-17 12:24 | DISCHARGE SUMMARY E ---
Discharge Summary NAME: ROCIO LANGLEY : 1950 AGE: 67Y ADMITTED: 11/16/2017 DISCHARGED: 11/17/2017 FINAL DIAGNOSIS: Acute gangrenous cholecystitis, umbilical hernia. PROCEDURE PERFORMED: Laparoscopic cholecystectomy with umbilical hernia repair performed by Dr. Zafar Mcdonald on 11/16/17. HOSPITAL COURSE: The patient underwent the above-mentioned surgery. She did well postoperatively. She was feeling much better after the operation. Her postoperative LFTs were normal. The patient is now being discharged to home in good condition. She is encouraged to stay active at home, but avoid strenuous activity. She may resume all of her home medications other than Glucophage which is to be held for a few more days. Additional medication is Percocet 1 p.o. q.4 hours p.r.n. pain. She will followup at [facility] in 2 weeks. She may shower tomorrow. She may follow a low-fat at home. DICTATING PHYSICIAN: ZAFAR MCDONALD M.D. [id number] PHY#: [id number] ID: [id number] JOB#: [id number] ACCT: [id number] cc:ZAFAR MCDONALD M.D. >
[2017-11-17 16:37] VITALS: BP 138/65
== END 2017-11-17 14:58 | disposition home or self-care (01) ==
LOC: ER 08:31 → INTOOBSV 15:49 → UNDOADMOB 15:49 → EH 15:49 → OMH.OR.ALL 19:09 → ER 19:09 → EH 20:15 → 2N 20:15 → OMH.OR.ALL 11-17 14:58 → UNDODISOB 11-17 14:58
PROVIDERS: ATTEND Surgery
DX: K80.00 Calculus of gallbladder with acute cholecystitis without obstruction (principal); K42.9 Umbilical hernia without obstruction or gangrene; N20.0 Calculus of kidney; K76.0 Fatty (change of) liver, not elsewhere classified; I10 Essential (primary) hypertension; E11.9 Type 2 diabetes mellitus without complications; M19.90 Unspecified osteoarthritis, unspecified site; E66.9 Obesity, unspecified; Z88.1 Allergy status to other antibiotic agents; Z68.36 Body mass index [BMI] 36.0-36.9, adult
CPT/HCPCS: 93005; 99285; 96374; 36415; 82553; 82962; 82550; 83690; 85025; 80053; 84484; 88304 ×2; 71046; 74018; 76705; 74177; 93010; 47562; 49585; J2250; J3490 ×3; J1100; J1885; J3010; J2765; J2270; J1170; J0330; J2405; J7030 ×2; J2704; J1956; J0131; 790